=== PATIENT | female | born 1975 | race Caucasian/White ===

== ENCOUNTER → 2019-09-08 | Outpatient (CLI) | payer OTHER ==
--- NOTE | 2019-09-08 13:59 | RAD ---
EXAM: Pelvic sonogram. HISTORY: Vaginal bleeding. TECHNIQUE: Transabdominal and transvaginal sonographic imaging of the pelvis was performed. COMPARISON: None. FINDINGS: The uterus is retroverted and measures 8.1 x 4.3 x 3.6 cm. The endometrial stripe measures 13 mm. The ovaries are obscured due to bowel gas. There is no pelvic free fluid. IMPRESSION: 1. Retroverted uterus. 2. Obscured ovaries due to bowel gas. Electronically signed by: Maribel Tripathi MD (09/08/2019 1:56 PM) [id number]
== END | disposition home or self-care (01) ==
LOC: US 13:08
PROVIDERS: ATTEND Obstetrics & Gynecology
DX: N85.4 Malposition of uterus (principal); N92.6 Irregular menstruation, unspecified
CPT/HCPCS: 76830; 76856